=== PATIENT | female | born 1975 | race Caucasian/White ===

== ENCOUNTER 2022-06-29 06:09 | Inpatient (IN) | payer OTHER ==
[2022-06-29] VITALS (8 sets, daily range): BP systolic 115–123; BP diastolic 55–72
[~2022-06-29] VITALS: Ht 167.6 cm; Wt 125.6 kg
[~2022-06-29 06:09] MED LIST: AMLO1TAB24 PO; DULO1CAP5 PO; HYDR-3490 PO; HYDR200T3 PO; LOSA25TA13 PO; OMEP-173 PO; PREG50CA PO; ceFAZolin SOD 1 GM in D5W MINI-BAG PLUS 50 ML IV ONE; ceFAZolin SOD 2 GM in IV 1 EA IV ONE
[2022-06-29] MEDS ORDERED: BUPIVACAINE HCL 0.25% 30ML VIAL As Ordered ONE (07:15)
[2022-06-29] MEDS ORDERED: LR 1,000 ML IV SCH ×2 (07:15→10:40)
[2022-06-29] MEDS ORDERED: ERGO500029 PO (07:15)
[2022-06-29] MEDS ORDERED: LIDOCAINE 1% SDV 30ML VIAL As Ordered ONE (07:15)
[2022-06-29] MEDS ORDERED: OXYB5TAB10 PO (07:15)
[2022-06-29] MEDS ORDERED: fentaNYL 100 MCG/2 ML INJECTION As Ordered ONE (07:16)
[2022-06-29] MEDS ORDERED: LIDOCAINE 2% 100MG/5ML SDV (FOR ANES.) As Ordered ONE (07:16)
[2022-06-29] MEDS ORDERED: propofoL 200 MG/20 ML VIAL As Ordered ONE (07:16)
[2022-06-29] MEDS ORDERED: ROCURONIUM BROMIDE 50 MG/5 ML VIAL As Ordered ONE ×2 (07:16→08:12)
[2022-06-29] MEDS ORDERED: MIDAZOLAM INJ 2MG/2ML VIAL (J2250 PER 1MG) As Ordered ONE (07:16)
[2022-06-29] MEDS ORDERED: ONDANSETRON 4MG 2ML VIAL IV PRN ×2 (07:20→10:40)
[2022-06-29] MEDS ORDERED: HOME MED LIST COMPLETE! XX SCH (07:20)
[2022-06-29] MEDS ORDERED: ACETAMINOPHEN TAB 650MG DOSE (2X325MG) PO PRN (07:20)
[2022-06-29] MEDS ORDERED: NS 1,000 ML IV SCH (07:20)
[2022-06-29] MEDS ORDERED: PERCOCET 5MG/325MG TAB PO PRN (07:20)
[2022-06-29] MEDS ORDERED: dexameTHASONE 4 MG/ML 1ML VIAL (J1100 PER 1MG) As Ordered ONE (08:06)
[2022-06-29] MEDS ORDERED: HYDROmorphone HCL 2MG/ML 1ML VIAL As Ordered ONE (08:20)
[2022-06-29] MEDS ORDERED: GLYCOPYRROLATE INJ 0.2 MG/ML 2 ML VIAL As Ordered ONE (08:23)
[2022-06-29] MEDS: DOCUSATE SODIUM 100MG CAPSULE PO SCH ×2 (09:00→20:30)
[2022-06-29] MEDS ORDERED: ACETAMINOPHEN 1000MG 100ML IV BTL (OFIRMEV) (J0131 PER 10MG) As Ordered ONE (09:11)
[2022-06-29] MEDS ORDERED: METOCLOPRAMIDE INJ 10MG/2ML VIAL (J2765 PER 1) As Ordered ONE (09:11)
[2022-06-29] MEDS ORDERED: SUGAMMADEX SODIUM 500 MG/5 ML VIAL (BRIDION) As Ordered ONE (09:11)
[2022-06-29] MEDS ORDERED: DESFLURANE 240 ML INHALANT As Ordered ONE (09:12)
[2022-06-29] MEDS ORDERED: ONDANSETRON 4MG 2ML VIAL As Ordered ONE (09:16)
[2022-06-29] MEDS ORDERED: HYDROMORPHONE HCL 0.5 MG/ 0.5 ML SYRINGE (J1170 PER 1) IV PRN (10:40)
[2022-06-29] MEDS ORDERED: oxyCODONE 5MG TAB PO PRN (10:40)
[2022-06-29] MEDS ORDERED: fentaNYL 100 MCG/2 ML INJECTION IV PRN (10:40)
[2022-06-29 11:13] LABS: HEMATOCRIT 40.5 % (36.0-47.0); HEMOGLOBIN 13.3 g/dl (12.0-15.5); MEAN CORPUSCULAR HEMOGLOBIN 28.3 pg (27.0-33.0); MEAN CORPUSCULAR HGB CONC 32.8 g/dl (32.0-36.5); MEAN CORPUSCULAR VOLUME 86.2 fl (80.0-96.0); PLATELET COUNT, AUTOMATED 258 10^3/uL (150-450); WHITE BLOOD COUNT 9.5 10^3/uL (4.0-10.0)
[2022-06-29 11:54] LABS: BLOOD UREA NITROGEN 14 MG/DL (7-18); CALCIUM LEVEL 8.7 MG/DL (8.5-10.1); CARBON DIOXIDE LEVEL 25 MEQ/L (21-32); CHLORIDE LEVEL 103 MEQ/L (98-107); CREATININE FOR GFR 0.69 MG/DL (0.55-1.30); GLOMERULAR FILTRATION RATE > 60.0 (>58); GLUCOSE, FASTING 117 MG/DL (70-100); POTASSIUM SERUM 3.4 MEQ/L (3.5-5.1); SODIUM LEVEL 135 MEQ/L (136-145)
[2022-06-29] MEDS: PERCOCET 5MG/325MG TAB PO PRN ×2 (13:39→20:33)
[2022-06-29] MEDS: ceFAZolin SOD 1 GM in D5W MINI-BAG PLUS 50 ML IV SCH (16:15)
[2022-06-29] MEDS: HYDROXYCHLOROQUINE 200 MG TAB PO SCH (20:30)
[2022-06-29] MEDS: OMEPRAZOLE 20MG CAP PO SCH (20:31)
[2022-06-29] MEDS: PREGABALIN 50 MG CAP (LYRICA) PO SCH (20:31)
[2022-06-29] MEDS: DULoxetine 30MG CAPSULE (CYMBALTA) PO SCH (20:31)
[2022-06-29] MEDS: oxyBUTYnin 5 MG TAB PO SCH (20:31)
[2022-06-29] MEDS: LOSARTAN 25 MG TAB PO SCH (20:32)
[2022-06-29] MEDS ORDERED: amLODIPine 5 MG TAB PO SCH (21:00)
[2022-06-30] MEDS: ceFAZolin SOD 1 GM in D5W MINI-BAG PLUS 50 ML IV SCH (00:45)
[2022-06-30 01:54] VITALS: BP 120/60
[2022-06-30 06:00] VITALS: BP 118/60
[2022-06-30 08:30] LABS: HEMATOCRIT 35.8 % (36.0-47.0); HEMOGLOBIN 11.9 g/dl (12.0-15.5); MEAN CORPUSCULAR HEMOGLOBIN 28.5 pg (27.0-33.0); MEAN CORPUSCULAR HGB CONC 33.2 g/dl (32.0-36.5); MEAN CORPUSCULAR VOLUME 85.6 fl (80.0-96.0); PLATELET COUNT, AUTOMATED 199 10^3/uL (150-450); RED BLOOD COUNT 4.18 10^6/uL (4.00-5.40); WHITE BLOOD COUNT 5.6 10^3/uL (4.0-10.0)
[2022-06-30 09:00] VITALS: BP 99/53
[2022-06-30] MEDS: oxyBUTYnin 5 MG TAB PO SCH (09:00)
[2022-06-30] MEDS: LOSARTAN 25 MG TAB PO SCH (09:00)
[2022-06-30] MEDS: DOCUSATE SODIUM 100MG CAPSULE PO SCH (09:01)
[2022-06-30] MEDS: OMEPRAZOLE 20MG CAP PO SCH (09:01)
[2022-06-30] MEDS: HYDROXYCHLOROQUINE 200 MG TAB PO SCH (09:01)
[2022-06-30] MEDS: PREGABALIN 50 MG CAP (LYRICA) PO SCH (09:05)
[2022-06-30] MEDS: DULoxetine 30MG CAPSULE (CYMBALTA) PO SCH ×2 (09:05→09:23)
[2022-06-30 09:06] LABS: BLOOD UREA NITROGEN 12 MG/DL (7-18); CALCIUM LEVEL 8.5 MG/DL (8.5-10.1); CARBON DIOXIDE LEVEL 27 MEQ/L (21-32); CHLORIDE LEVEL 104 MEQ/L (98-107); GLOMERULAR FILTRATION RATE > 60.0 (>58); GLUCOSE, FASTING 91 MG/DL (70-100); POTASSIUM SERUM 3.3 MEQ/L (3.5-5.1); SODIUM LEVEL 135 MEQ/L (136-145)
[2022-06-30] MEDS ORDERED: PERCOCET PO (13:40)
[2022-06-30] MEDS ORDERED: COLA100C5 PO (13:40)
[2022-06-30 14:00] VITALS: BP 119/79
== END 2022-06-30 17:09 | disposition home or self-care (01) | DRG 442 ==
LOC: M OR 06:09 → M MS5PR 13:10
PROVIDERS: ADMIT Urology; ATTEND Urology
PROC: 8E0W4CZ Robotic Assisted Procedure of Trunk Region, Percutaneous Endoscopic Approach (ICD-10-PCS; 2022-06-29)
PROC: 0TB04ZZ Excision of Right Kidney, Percutaneous Endoscopic Approach (ICD-10-PCS; principal; 2022-06-29 07:30)
DX: C64.1 Malignant neoplasm of right kidney, except renal pelvis (principal); M32.9 Systemic lupus erythematosus, unspecified; Z90.49 Acquired absence of other specified parts of digestive tract; E55.9 Vitamin D deficiency, unspecified; K21.9 Gastro-esophageal reflux disease without esophagitis; M79.7 Fibromyalgia; K90.0 Celiac disease; Z79.899 Other long term (current) drug therapy; E66.01 Morbid (severe) obesity due to excess calories